=== PATIENT | male | born 1955 | race Caucasian/White ===

== ENCOUNTER → 2021-07-09 | Outpatient (CLI) | payer OTHER ==
[~2021-07-09] MED LIST: SULF1TAB38 PO; TRM50T PO; [UNRECOGNIZED DRUG - REMARK] PO
== END ==
LOC: CARD 13:30
PROVIDERS: ATTEND Internal Medicine Cardiovascular Disease
DX: I08.0 Rheumatic disorders of both mitral and aortic valves (principal)
CPT/HCPCS: 93306

== ENCOUNTER → 2021-07-10 | Outpatient (CLI) | payer OTHER ==
[~2021-07-10] VITALS: Ht 190 cm; Wt 80.0 kg
[~2021-07-10] MED LIST changes: +CATHETER FLUSH 10 ML SYR IVP PRN
[2021-07-10 08:37] LABS: HEMATOCRIT 56 % (40-54); HEMOGLOBIN 17.8 g/dL (13.3-17.7); MEAN CORPUSCULAR HEMOGLOBIN 30 pg (25-34); MEAN CORPUSCULAR HGB CONC 32 g/dL (32-36); MEAN CORPUSCULAR VOLUME 93 fL (80-99); MEAN PLATELET VOLUME 9.4 fL (9.0-12.2); PLATELET COUNT 291 10^3/uL (130-400); WHITE BLOOD COUNT 12.3 10^3/uL (4.3-11.0)
[2021-07-10 08:46] LABS: CALCIUM 9.4 MG/DL (8.5-10.1); CREATININE SERUM 1.39 MG/DL (0.60-1.30); POTASSIUM 4.9 MMOL/L (3.6-5.0)
[2021-07-10 08:51] LABS: PROTHROMBIN TIME PATIENT 13.2 SEC (12.2-14.7)
[2021-07-10 09:03] VITALS: BP 134/92
--- NOTE | 2021-07-11 18:48 | NUCLEAR STRESS TEST ---
TREADMILL NUCLEAR STRESS TEST Date of procedure: 07/10/2021. Primary care provider: No local physician. Admitting physician: Rusty Hernandez Jr., MD. INDICATION: Abnormal electrocardiogram. BASELINE ELECTROCARDIOGRAM: Sinus rhythm with left atrial abnormality and left ventricular hypertrophy with repolarization abnormality. STRESS TEST PROCEDURE: The patient was exercised for a total of 3 minutes and 1 seconds of the standard Narciso protocol achieving a maximum MET level of 4.6. The resting heart rate was 91 bpm and the peak heart rate was 134 bpm, which represents 86% of the maximum predicted heart rate. The resting blood pressure was 132/91 mmHg and the peak blood pressure was 176/101 mmHg. This represents a normal heart rate and a normal blood pressure response to exercise. The test was stopped due to fatigue. There was no chest discomfort during the test. There were no arrhythmias during the test. The stress electrocardiogram was indeterminate due to the left ventricular hypertrophy. The patient exhibited fair exercise capacity for age. NUCLEAR PROCEDURE: The patient was administered 10.8 mCi of intravenous technetium 99m Tetrofosmin at rest for the rest images. The patient was subsequently administered 30.2 mCi of intravenous technetium 99 M Tetrofosmin at peak stress for the stress images. Following an appropriate wait after each injection, imaging was obtained. The images were subsequently processed and reformatted in the usual views. Gated imaging was obtained. The image quality was adequate with a mild degree of gastrointestinal attenuation artifact. CT attenuation correction was used as a adjunct to standard imaging. Both the corrected and uncorrected images were reviewed for interpretation. NUCLEAR RESULTS: There was a small, severe intensity, fixed apical defect with no evidence of inducible ischemia. The left ventricle was dilated with an end- diastolic volume of 233 mL and an end-systolic volume of 193 mL. There was no evidence of transient ischemic dilatation. The TID ratio was 1.04. There was severe global hypokinesis with a calculated ejection fraction of 17%. IMPRESSION: 1. Normal heart rate and blood pressure response to exercise. 2. There was no chest discomfort or arrhythmias during the test. 3. The stress electrocardiogram was indeterminate due to the left ventricular hypertrophy. 4. The patient exhibited fair exercise capacity for age at 3 minutes and 1 second of the Narciso protocol. 5. The left ventricle was dilated. 6. There was a small, severe intensity, fixed apical defect with no evidence of inducible ischemia. 7. There was severe global hypokinesis with a calculated ejection fraction of 17%. 8. This is an abnormal result representing a high risk for possible future coronary ischemic events in light of the perfusion abnormality coupled with left ventricular dilatation and severe left ventricular systolic dysfunction. Certain portions of this document may have been dictated utilizing voice recognition technology. Inherent to this technology, typographical and grammatical errors may exist. As much as I am diligent to identify and correct these mistakes, some errors may remain in the document. RUSTY HERNANDEZ JR, MD Jul 11, 2021 18:48
[2021-07-15 16:15] LABS: BILIRUBIN,TOTAL 0.5 MG/DL (0.1-1.0)
[2021-07-15 16:16] LABS: TOTAL PROTEIN 7.1 GM/DL (6.4-8.2)
== END ==
LOC: CARD 07:36
PROVIDERS: ATTEND Internal Medicine Cardiovascular Disease
DX: R94.31 Abnormal electrocardiogram [ECG] [EKG] (principal); I10 Essential (primary) hypertension; I42.9 Cardiomyopathy, unspecified; F17.210 Nicotine dependence, cigarettes, uncomplicated
CPT/HCPCS: 78452; 80048; 80061; 85027; 85610; 93017; A9502; 36415

== ENCOUNTER → 2021-07-17 | Day surgery (SDC) | payer OTHER ==
[2021-07-17] VITALS (8 sets, daily range): BP systolic 127–152; BP diastolic 81–114
[~2021-07-17] VITALS: Ht 190 cm; Wt 79.9 kg
[~2021-07-17] MED LIST changes: +ASPI-1238 PO; +CATHETER FLUSH 10 ML SYR IV PRN; -CATHETER FLUSH 10 ML SYR IVP PRN; +FAMOTIDINE 20MG/2ML IV (PEPCID) ONE; +HEParin (CATH LAB) 1,000 ML IV ONE; +HEParin 1000 UNIT/ML (10ML VIAL) FOR BOLUS ONE; +LIDOCAINE 1% INJ 20 ML VIAL ONE; +LISI5TAB20 PO; +METO50TA7 PO; +MIDAZOLAM 5 MG/5 ML (VERSED) VIAL ONE; +NITRO DRIP 25000 MCG/D5W 250 ML IV ONE; +NS IV 1000 ML 1,000 ML IV ONE; +NS IV 1000 ML 1,000 ML IV SCH; +NS IV 1000 ML 1,000 ML ONE; +ROSU20TA32 PO; +VERAPAMIL 5 MG/2 ML (CALAN) VIAL IV ONE; +diphenhydrAMINE 50 MG/ML INJ (BENADRYL) ONE; +fentaNYL INJ 100 MCG/2 ML AMP ONE; +methylPREDNISolone 125 MG (Solu-MEDROL) VIAL ONE
--- NOTE | 2021-07-17 09:40 | Pre-Op Note & Conscious Sedat ---
Pre-Operative Progress Note H&P Reviewed The H&P was reviewed, patient examined and no changes noted. Date H&P Reviewed: Jul 17, 2021 Time H&P Reviewed: 09:40 Pre-Op Diagnosis: Cardiomyopathy Conscious Sedation Pre-Proced ASA Score 2 For ASA 3 and 4: Consider anesthesia and medical clearance. Also, for patients with a history of failed moderate sedation consider anesthesia. Airway Lungs Heart ASA score ASA 1: a normal healthy patient ASA 2: a patient with a mild systemic disease (mid diabetes, controlled hypertension, obesity ASA 3: a patient with a severe systemic disease that limits activity (angina, COPD, prior Myocardial infarction) ASA 4: a patient with an incapacitating disease that is a constant threat to life (CHF, renal failure) ASA 5: a moribund patient not expected to survive 24 hrs. (ruptured aneurysm) ASA 6: a declared brain- patient whose organs are being harvested. For emergent operations, add the letter E after the classification Mallampati Classification Grade 2 Sedation Plan Analgesia, Amnesia, Plan communicated to team members, Discussed options with patient/fam, Discussed risks with patient/fam The patient is an appropriate candidate to undergo the planned procedure, sedation, and anesthesia. The patient immediately re-assessed prior to indication. TEGAN DURON JR, MD Jul 17, 2021 09:40
--- NOTE | 2021-07-17 10:21 | Cardiac Cath Report ---
CARDIAC CATHETERIZATION DATE OF PROCEDURE: 07/17/2021 INDICATION: Cardiomyopathy and chronic heart failure with reduced ejection fraction. HISTORY: The patient is a 66 year old male with no previously known history of coronary artery disease who is recently found to have severe cardiomyopathy by echocardiogram performed on 07/09/2021 with an estimated ejection fraction of 15-20%. He is also having symptoms consistent with heart failure. He is now referred for further evaluation with a cardiac catheterization. PROCEDURES PERFORMED: 1. Diagnostic tejon coronary angiography. PROCEDURE DESCRIPTION: After informed consent and in the fasting state, left heart catheterization was performed through the right radial artery utilizing a 6 Kisw[place]ili system by percutaneous approach. Standard 5 Kisw[place]ili Fela catheters were utilized for the diagnostic portion of the procedure. All catheters were exchanged over a guidewire. Following the procedure, a vascular band was applied to the radial artery access site and the sheath was removed with good hemostasis. RESULTS: HEMODYNAMICS: The aortic pressure was 128/93 mmHg. The aortic valve was not crossed. CORONARY ANGIOGRAPHY: The coronary arteries were diffusely large in caliber. Left main coronary artery: There was a 50% stenosis in the distal segment with EDGARDO-3 flow. Left anterior descending coronary artery: There was a 70% stenosis in the midsegment involving a large second diagonal branch. This was a bifurcation lesion with Lo classification of 1, 0, 0. There was EDGARDO-2 flow. Left circumflex coronary artery: Dominant and there was a 70% stenosis in the midportion at the bifurcation of a large obtuse marginal branch and the distal AV groove continuation of the left circumflex coronary artery proper EDGARDO-3 flow. There was a bifurcation lesion with a Lo classification of 0, 1, 1. There were [id number] collaterals seen filling the distal right coronary artery. Right coronary artery: Codominant and totally occluded proximally with multiple bridging collaterals and right to right and left to left collaterals filling the distal vessel. IMPRESSION: 1. Normal central aortic pressure. 2. Severe tejon three-vessel coronary artery disease in a codominant system as outlined above. The left main coronary artery is relatively spared. 3. The patient is known to have severe left ventricular systolic dysfunction with an estimated ejection fraction of 15-20% by echocardiogram performed on 07/09/2021. Certain portions of this document may have been dictated utilizing voice recognition technology. Inherent to this technology, typographical and grammatical errors may exist. As much as I am diligent to identify and correct these mistakes, some errors may remain in the document. TEGAN DURON JR, MD Jul 17, 2021 10:21
== END ==
LOC: CATH 10:30
PROVIDERS: ATTEND Internal Medicine Cardiovascular Disease
DX: I25.10 Atherosclerotic heart disease of native coronary artery without angina pectoris (principal); I42.9 Cardiomyopathy, unspecified; I50.22 Chronic systolic (congestive) heart failure; I10 Essential (primary) hypertension; R94.31 Abnormal electrocardiogram [ECG] [EKG]; F17.210 Nicotine dependence, cigarettes, uncomplicated; Z79.899 Other long term (current) drug therapy
CPT/HCPCS: 93454; C1894

== ENCOUNTER 2021-08-15 07:19 | Day surgery (SDC) | payer OTHER, MEDICARE ==
[~2021-08-15] VITALS: Ht 190.5 cm; Wt 78.3 kg
[2021-08-15] VITALS (13 sets, daily range): BP systolic 122–147; BP diastolic 89–111
[~2021-08-15 07:19] MED LIST changes: -CATHETER FLUSH 10 ML SYR IV PRN; -FAMOTIDINE 20MG/2ML IV (PEPCID) ONE; -HEParin (CATH LAB) 1,000 ML IV ONE; -HEParin 1000 UNIT/ML (10ML VIAL) FOR BOLUS ONE; -LIDOCAINE 1% INJ 20 ML VIAL ONE; -MIDAZOLAM 5 MG/5 ML (VERSED) VIAL ONE; -NITRO DRIP 25000 MCG/D5W 250 ML IV ONE; -NS IV 1000 ML 1,000 ML IV ONE; -NS IV 1000 ML 1,000 ML IV SCH; -NS IV 1000 ML 1,000 ML ONE; -VERAPAMIL 5 MG/2 ML (CALAN) VIAL IV ONE; -diphenhydrAMINE 50 MG/ML INJ (BENADRYL) ONE; -fentaNYL INJ 100 MCG/2 ML AMP ONE; -methylPREDNISolone 125 MG (Solu-MEDROL) VIAL ONE
[2021-08-15] MEDS ORDERED: NS IV 1000 ML 1,000 ML IV SCH ×2 (07:30)
[2021-08-15] MEDS ORDERED: LIDOCAINE 2% VISCOUS 15 ML UDC ONE (07:35)
[2021-08-15] MEDS ORDERED: NS IV 1000 ML 1,000 ML ONE (07:36)
--- NOTE | 2021-08-15 08:00 | Conscious Sedation/ASA ---
Conscious Sedation Pre-Proced Time 08:00 ASA Score 3 For ASA 3 and 4: Consider anesthesia and medical clearance. Also, for patients with a history of failed moderate sedation consider anesthesia. Airway Lungs Heart ASA score ASA 1: a normal healthy patient ASA 2: a patient with a mild systemic disease (mid diabetes, controlled hypertension, obesity x ASA 3: a patient with a severe systemic disease that limits activity (angina, COPD, prior Myocardial infarction) ASA 4: a patient with an incapacitating disease that is a constant threat to life (CHF, renal failure) ASA 5: a moribund patient not expected to survive 24 hrs. (ruptured aneurysm) ASA 6: a declared brain- patient whose organs are being harvested. For emergent operations, add the letter E after the classification Mallampati Classification Grade 3 Sedation Plan Analgesia, Amnesia, Plan communicated to team members, Discussed options with patient/fam, Discussed risks with patient/fam The patient is an appropriate candidate to undergo the planned procedure, sedation, and anesthesia. The patient immediately re-assessed prior to indication. KYLEIGH GAITAN MD August 15, 2021 08:00
[2021-08-15 08:01] LABS: HEMATOCRIT 50 % (40-54); HEMOGLOBIN 16.9 g/dL (13.3-17.7); MEAN CORPUSCULAR HEMOGLOBIN 30 pg (25-34); MEAN CORPUSCULAR HGB CONC 34 g/dL (32-36); MEAN CORPUSCULAR VOLUME 89 fL (80-99); MEAN PLATELET VOLUME 9.8 fL (9.0-12.2); PLATELET COUNT 251 10^3/uL (130-400); WHITE BLOOD COUNT 11.4 10^3/uL (4.3-11.0)
[2021-08-15] MEDS ORDERED: LISI10TA25 PO (08:02)
[2021-08-15] MEDS ORDERED: MTP100TCR PO (08:02)
[2021-08-15 08:06] LABS: PROTHROMBIN TIME PATIENT 13.6 SEC (12.2-14.7)
[2021-08-15] MEDS ORDERED: MIDAZOLAM 5 MG/5 ML (VERSED) VIAL ONE (08:07)
[2021-08-15] MEDS ORDERED: fentaNYL INJ 100 MCG/2 ML AMP ONE (08:07)
[2021-08-15] MEDS ORDERED: LIDOCAINE 2% VISCOUS 15 ML UDC PO ONE (08:15)
[2021-08-15 08:17] LABS: BILIRUBIN,TOTAL 0.6 MG/DL (0.1-1.0); CREATININE SERUM 1.08 MG/DL (0.60-1.30); POTASSIUM 4.7 MMOL/L (3.6-5.0); TOTAL PROTEIN 6.6 GM/DL (6.4-8.2)
--- NOTE | 2021-08-15 08:32 | Discharge Inst-Post CATH ---
Discharge Inst-CATH/EP Problems Reviewed?: Yes Post Cardiac Cath/EP D/C Inst Follow Up/Plan Follow-up with Dr. Hernandez <b>CARDIAC CATH/EP PROCEDURE DISCHARGE INSTRUCTIONS</b> ACTIVITY * Go Home directly and rest. * Limit activity of the leg (or wrist if it was used) for 7 days including aerobics, swimming, jogging, bicycling, etc. * Restrict stair-climbing for 7 days if possible, if not, climb up with your non-cath leg, then bring together on the same step. * Avoid lifting, pushing, pulling or excessive movement of the affected extremity for 7 days. * Customary sexual activity may be resumed after 2 days-use caution not to use a position that strains or causes pain to the affected extremity. * No driving for 24 hours. * NO SMOKING. * Avoid straining for bowel movements for 7 days. * Gentle walking on level ground is allowed. * Returning to work will depend on the type of procedure and the results. Your doctor will discuss this with you. CALL YOUR DOCTOR FOR ANY OF THE FOLLOWING: *If bleeding from the puncture site occurs- Apply gentle pressure to site with clean cloth and call your doctor or EMS. * If a knot or lump forms under the skin, increases in size, or causes pain. * If bruising appears to be worsening or moving further down your leg instead of disappearing. * Temperature above 101 F. CARE OF YOUR GROIN INCISION; * Bruising or purple discoloration of the skin near the puncture site is common. * You may shower only, no bathtub bathing for 5 days. Be careful to avoid slipping as your leg may feel stiff. * If a closure device was used on your femoral artery, please see the attached guide regarding care of the device and your leg. * Leave dressing on FOR 24 hours. CARE OF YOUR WRIST INCISION; * Bruising or purple discoloration of the skin near the puncture site is common. * You may shower. * DO NOT submerge wrist. * Leave dressing on FOR 24 hours. KYLEIGH GAITAN MD August 15, 2021 08:32
--- NOTE | 2021-08-15 08:33 | Clinic Account Progress/Dx ---
Clinic Account Progress/Dx DIAGNOSIS: Date Seen by Provider: August 15, 2021 Time Seen by Provider: 08:33 Aortic valve stenosis Coronary artery disease Hypertension KYLEIGH GAITAN MD August 15, 2021 08:33
[2021-08-15] MEDS ORDERED: FLUMAZENIL (ROMAZICON) 0.1 MG/ML 10 ML VIAL IV ONE ×2 (08:34→08:36)
--- NOTE | 2021-08-15 08:37 | Diagnostic Imaging Report ---
INDICATION: Shortness of breath. Frontal chest obtained at 8:21 a.m. FINDINGS: There is cardiomegaly. There is central vascular congestion. There is no focal infiltrate or pneumothorax. There is minimal right pleural effusion. IMPRESSION: Prominent cardiomegaly with central vascular congestion and small right pleural effusion. No consolidation or pneumothorax. Dictated by: Dictated on workstation # [id number]
[2021-08-15] MEDS ORDERED: MIDAZOLAM 5 MG/5 ML (VERSED) VIAL IV ONE (08:45)
[2021-08-15] MEDS ORDERED: fentaNYL INJ 100 MCG/2 ML AMP IV ONE (08:45)
== END 2021-08-15 11:00 | disposition home or self-care (01) ==
LOC: CATH 07:19
PROVIDERS: ATTEND Internal Medicine Cardiovascular Disease
DX: I08.0 Rheumatic disorders of both mitral and aortic valves (principal); I25.10 Atherosclerotic heart disease of native coronary artery without angina pectoris; I42.9 Cardiomyopathy, unspecified; I11.0 Hypertensive heart disease with heart failure; I50.22 Chronic systolic (congestive) heart failure; Z79.899 Other long term (current) drug therapy; F17.210 Nicotine dependence, cigarettes, uncomplicated; E78.2 Mixed hyperlipidemia; Z79.82 Long term (current) use of aspirin
CPT/HCPCS: 36415; 71045; 80053; 80061; 85027; 85610; 85730; 87081; 93005; 93312

== ENCOUNTER 2021-10-24 09:06 | Outpatient (RCR) | payer OTHER, MEDICARE ==
[~2021-10-24 09:06] MED LIST changes: +LISI10TA25 PO; +MTP100TCR PO
== END 2021-10-26 | disposition home or self-care (01) ==
LOC: CR 09:06
PROVIDERS: ATTEND Internal Medicine Cardiovascular Disease
DX: Z29.8 Encounter for other specified prophylactic measures (principal); Z95.5 Presence of coronary angioplasty implant and graft
CPT/HCPCS: 93798

== ENCOUNTER 2021-11-10 11:24 | Outpatient (RCR) | payer OTHER, MEDICARE | END 2021-11-26 | disposition home or self-care (01) | LOC: CR 11:24 | PROVIDERS: ATTEND Internal Medicine Cardiovascular Disease | DX: Z29.8 Encounter for other specified prophylactic measures (principal); Z95.5 Presence of coronary angioplasty implant and graft | CPT/HCPCS: 93798 ==

== ENCOUNTER → 2021-11-28 | Outpatient (CLI) | payer OTHER, MEDICARE | LOC: CARD 11:49 | PROVIDERS: ATTEND Internal Medicine Cardiovascular Disease | DX: I42.9 Cardiomyopathy, unspecified (principal); I08.0 Rheumatic disorders of both mitral and aortic valves | CPT/HCPCS: 93306 ==